=== PATIENT | male | born 1970 | race Caucasian/White ===

== ENCOUNTER 2017-01-01 22:21 | Emergency (ER) | payer OTHER, BC ==
[~2017-01-01] VITALS: Ht 180.3 cm; Wt 95.2 kg
[2017-01-01] MEDS ORDERED: METFORMIN HCL500 MG PO (22:41)
[2017-01-01] MEDS ORDERED: ASPIR-LOW81 MG PO (22:42)
[2017-01-01] MEDS ORDERED: VITAMIN D1000 UNIT PO (22:42)
[2017-01-01] MEDS ORDERED: GLIPIZIDE5 MG PO (22:43)
[2017-01-01] MEDS ORDERED: ANIMAL CHEWS1 EACH PO (22:43)
[2017-01-01] MEDS ORDERED: GLIPIZIDE XL5 MG PO (23:09)
[2017-01-01] MEDS ORDERED: JANUMET XR 50-1 EAC1 PO (23:10)
== END 2017-01-02 01:01 | disposition home or self-care (01) ==
LOC: ED 22:21
DX: E11.65 Type 2 diabetes mellitus with hyperglycemia (principal); Z91.14 Patient's other noncompliance with medication regimen; J45.909 Unspecified asthma, uncomplicated; Z91.09 Other allergy status, other than to drugs and biological substances; Z91.013 Allergy to seafood; Z79.82 Long term (current) use of aspirin; Z79.899 Other long term (current) drug therapy
CPT/HCPCS: 80053; 81001; 82010; 85025; 99283; J7030

== ENCOUNTER 2020-02-11 09:57 | Emergency (ER) | payer BC, OTHER ==
[~2020-02-11] VITALS: Ht 180.3 cm; Wt 95.3 kg
[~2020-02-11 09:57] MED LIST: ANIMAL CHEWS1 EACH PO; ASPIR-LOW81 MG PO; GLIPIZIDE XL5 MG PO; GLIPIZIDE5 MG PO; JANUMET XR 50-1 EAC1 PO; METFORMIN HCL500 MG PO; VITAMIN D1000 UNIT PO
[2020-02-11] MEDS ORDERED: ZITHROMAX250 MG PO (11:39)
--- OUTSIDE RECORDS SUMMARY | 2020-02-11 12:16 | XMS ---
PreManage Notification: [facility] Security Meat Clerk Events No recent Security Events currently on file CRITERIA MET - [facility] - Has Care Guidelines CARE PROVIDERS There are no care providers on record at this time. Juliana has no Care Guidelines for this patient. Care History Medical/Surgical 02/11/2020 [facility] 02/06/20 POSITVE SARS-CoV @ [facility].\T\nbsp; E.D. VISIT COUNT (12 MO.) [address] [facility] TOTAL 1 NOTE: Visits indicate total known visits. ED/[facility] VISIT TRACKING (12 MO.) 02/11/2020 09:[address] [facility] [place] TYPE: Emergency COMPLAINT: - SOB INPATIENT VISIT TRACKING (12 MO.) No inpatient visits to display in this time frame [id number]
== END 2020-02-11 12:12 | disposition home or self-care (01) ==
LOC: ED 09:57
DX: U07.1 COVID-19 (principal); J12.89 Other viral pneumonia; E11.9 Type 2 diabetes mellitus without complications; J45.909 Unspecified asthma, uncomplicated; Z88.8 Allergy status to other drugs, medicaments and biological substances; Z91.013 Allergy to seafood; Z79.899 Other long term (current) drug therapy; Z79.82 Long term (current) use of aspirin
CPT/HCPCS: 71045; 99284-25

== ENCOUNTER 2021-02-23 05:12 | Emergency (ER) | payer OTHER ==
[~2021-02-23] VITALS: Ht 180.3 cm; Wt 106.0 kg
[~2021-02-23 05:12] MED LIST changes: +ZITHROMAX250 MG PO
--- OUTSIDE RECORDS SUMMARY | 2021-02-23 05:16 | XMS ---
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 Juliana has no Care Guidelines for this patient. Care History Medical/Surgical 02/11/2020 [facility] 02/06/20 POSITVE SARS-CoV @ [facility].\T\nbsp; E.D. VISIT COUNT (12 MO.) [address] [facility] TOTAL 1 NOTE: Visits indicate total known visits. ED/[facility] VISIT TRACKING (12 MO.) 02/23/2021 05:14 [facility] [place] TYPE: Emergency COMPLAINT: - FINGER LACERATION INPATIENT VISIT TRACKING (12 MO.) No inpatient visits to display in this time frame [email or web address]
== END 2021-02-23 06:27 | disposition home or self-care (01) ==
LOC: ED 05:12
DX: S61.212A Laceration without foreign body of right middle finger without damage to nail, initial encounter (principal); Z23 Encounter for immunization; W22.8XXA Striking against or struck by other objects, initial encounter; E11.9 Type 2 diabetes mellitus without complications; J45.909 Unspecified asthma, uncomplicated; Z88.8 Allergy status to other drugs, medicaments and biological substances; Z79.899 Other long term (current) drug therapy; Z79.82 Long term (current) use of aspirin; Z91.013 Allergy to seafood
CPT/HCPCS: 12001; 90471; 90715; 99282-25

== ENCOUNTER 2021-02-28 00:48 | Emergency (ER) | payer OTHER ==
[~2021-02-28] VITALS: Ht 180.3 cm; Wt 105.2 kg
--- OUTSIDE RECORDS SUMMARY | 2021-02-28 00:50 | XMS ---
PreManage Notification: [facility] Security Rail Crew Member Events No recent Security Events currently on file CRITERIA MET - [facility] - Has Care Guidelines - [facility] - 2 Visits in 30 Days CARE PROVIDERS [facility] 02/24/2021-[facility] PHONE: [phone] Juliana has no Care Guidelines for this patient. Care History Medical/Surgical 02/24/2021 [facility] - PATIENT IS [facility], \T\middot;\T\nbsp; PLEASE REFER PATIENT TO [facility] FOR NON EMERGENT MEDICAL NEEDS. \T\middot;\T\nbsp; [facility] CAN SEE PATIENTS SAME DAY FOR APTS IF PATIENT CALLS FIRST THING IN THE MORNING. 02/11/2020 [facility] 02/06/20 POSITVE SARS-CoV @ [facility].\T\nbsp; E.D. VISIT COUNT (12 MO.) 2 [facility] TOTAL 2 NOTE: Visits indicate total known visits. ED/[facility] VISIT TRACKING (12 MO.) 02/28/2021 00:49 [facility] [place] TYPE: Emergency COMPLAINT: - RT SIDED PAIN, SHORTNESS OF BREATH 02/23/2021 05:14 [facility] [place] TYPE: Emergency COMPLAINT: - FINGER LACERATION DIAGNOSES: - M[facility] (current) use of aspirin - Encounter for immunization - Type 2 diabetes mellitus without complications - Striking against or struck by other objects, initial encounter - Allergy status to other drugs, medicaments and biological substances - Laceration without foreign body of right middle finger without damage to nail, initial encounter - Allergy to seafood - Unspecified asthma, uncomplicated - Other transit operator (current) drug therapy INPATIENT VISIT TRACKING (12 MO.) No inpatient visits to display in this time frame [email or web address]
== END 2021-02-28 02:29 | disposition home or self-care (01) ==
LOC: ED 00:48
DX: S20.214A Contusion of middle front wall of thorax, initial encounter (principal); W22.8XXA Striking against or struck by other objects, initial encounter; E11.9 Type 2 diabetes mellitus without complications; J45.909 Unspecified asthma, uncomplicated; Z91.041 Radiographic dye allergy status; Z91.013 Allergy to seafood; Z79.899 Other long term (current) drug therapy; Z79.82 Long term (current) use of aspirin
CPT/HCPCS: 71046; 74176; 99284-25

== ENCOUNTER 2023-12-04 07:30 | Day surgery (SDC) | payer OTHER ==
[~2023-12-04] VITALS: Ht 180.3 cm; Wt 101.0 kg
[~2023-12-04 07:30] MED LIST changes: +AMOX TR-K CLV1 EAC1 PO; +IBLOOD GLUCOSE TEST STRIP 1 EA TEST VI PRN; +LACTATED RINGER'S 1,000 ML IV SCH; +LIDOCAINE HCL 1% 5 ML SDV INJ ONE; +MIDAZOLAM HCL 5 MG/5 ML VIAL IV PRN; +fentaNYL citrate 100 MCG/2 ML VIAL IV PRN
--- NOTE | 2023-12-04 07:47 | NUR ---
PT NOT AVAILABLE FOR VISIT. PROVIDED PRAYER.
[2023-12-04 07:52] VITALS: BP 130/83
[2023-12-04] MEDS ORDERED: ROSUVASTATIN CA10 MG PO (07:55)
[2023-12-04] MEDS ORDERED: LISINOPRIL40 MG PO (07:55)
[2023-12-04] MEDS ORDERED: JARDIANCE25 MG PO (07:55)
[2023-12-04] MEDS ORDERED: fentaNYL citrate 100 MCG/2 ML VIAL ONE (08:37)
[2023-12-04] MEDS ORDERED: MIDAZOLAM HCL 5 MG/5 ML VIAL ONE (08:37)
--- NOTE | 2023-12-04 09:31 | NUR ---
12/04/23 0931 Ching Barrios 6260-PATIENT ARRIVED TO PACU ON 2L NC RR EVEN. PATIENT REACTIVE TO VERBAL STIMULI OPENING EYES VERY DROWSY. ENCOURAGED TO PASS GAS. DENIES PAIN. DOZES BACK TO SLEEP. ABDOMEN SOFT. IVF INFUSING.
[2023-12-04 10:18] VITALS: BP 115/82
--- NOTE | 2023-12-04 12:07 | OR ---
[facility] [address] [place], [place] [address] Signed DATE OF OPERATION: 12/04/2023 SURGEON: David Redd MD PREOPERATIVE DIAGNOSIS: Screening. POSTOPERATIVE DIAGNOSES: 1. 5 mm polyp at 5 cm in the rectum. 2. 5 mm polyp at 15 cm in the rectum. PROCEDURE: Colonoscopy with hot biopsy. ESTIMATED BLOOD LOSS: None. INDICATIONS: South is a 53-year-old diabetic gentleman, asked to see me for his initial screening colonoscopy. He has no lower GI complaints. There is no family history of colon cancer or polyps. In the office, I gave him a pamphlet on colonoscopy. He understands the nature of the test. There is risk including, but not limited to gas bloating, crampy abdominal pain, bleeding, perforation requiring surgery, and missed diagnosis. We also reviewed the written instructions for a bowel prep line by line. We also reviewed the need for IV conscious sedation. He had expressed understanding and wished to proceed. He understands an adult person has to take him home afterwards. He had expressed understanding and wished to proceed. DESCRIPTION OF PROCEDURE: South was taken into our endoscopy suite and placed in the left lateral decubitus position. He was given 8 mg of Versed and 150 mcg of fentanyl throughout the case. A couple of times, he was a little awake, so we paused and gave him some more medication and then proceeded. A digital rectal exam had been performed. He had good sphincter tone. No external hemorrhoids. No masses. His prostate is enlarged and indurated. The adult colonoscope had been introduced and advanced under direct visualization of the camera. We could easily see the appendiceal orifice and the ileocecal valve. His prep was good. The scope was then slowly withdrawn. We took several pictures throughout for photodocumentation. He had no pathology in the entire colon. The rectum had two small polyps, which we removed with the hot biopsy forceps. Upon retroflexion of the scope, he really does not have any additional pathology above the anal canal. After this, the Electronically Signed By: DAVID REDD MD 12/04/23 1207 PATIENT NAME: SOUTH OSCAR OPERATIVE REPORT DATE OF : 68 REPORT #: [id number] PHYSICIAN: DAVID REDD MD PCP: MADONNA JEAN BAPTISTE MD REPORT IS CONFIDENTIAL AND NOT TO BE RELEASED WITHOUT AUTHORIZATION [facility] [address] [place] [id number] Signed gas was suctioned out and the colonoscope removed. South tolerated the procedure quite well. RECOMMENDATIONS: I will see South back in my office in 7 to 14 days to review his pathology results. David Redd MD ALB/MODL /[id number] cc: David Redd MD [facility] Copies: DAVID REDD MD ~ Electronically Signed By: DAVID REDD MD 12/04/23 1207 PATIENT NAME: SOUTH OSCAR OPERATIVE REPORT DATE OF : 68 REPORT #: [id number] PHYSICIAN: DAVID REDD MD PCP: MADONAN JEAN BAPTISTE MD REPORT IS CONFIDENTIAL AND NOT TO BE RELEASED WITHOUT AUTHORIZATION
--- NOTE | 2023-12-06 14:26 | PATH ---
[facility] [address] [facility] [place], [place] [address] Signed SPECIMEN(S): A RECTAL POLYP, 5 CM SPECIMEN(S): B RECTAL POLYP, 15 CM SPECIMEN SOURCE: A. RECTAL POLYP, 5 CM B. RECTAL POLYP, 15 CM CLINICAL HISTORY: Colon screening/rectal polyps FINAL PATHOLOGIC DIAGNOSIS: A. Rectal polyp 5 cm: - Hyperplastic polyp (one fragment). B. Rectal polyp 15 cm: - Hyperplastic polyp (one fragment). JVR:clv MICROSCOPIC EXAMINATION: Histologic sections of all submitted blocks are examined by light microscopy. These findings, together with the gross examination, support the pathologic diagnosis. GROSS DESCRIPTION: A. The specimen, labeled and designated "[place], rectal polyp, 5 cm," is received in formalin and consists of one kilpatrick soft tissue fragment, 0.2 cm. Entirely submitted in (A1). B. The specimen, labeled and designated "[place], rectal polyp, 15 cm," is received in formalin and consists of one kilpatrick soft tissue fragment, 0.2 cm. Entirely submitted in (B1). VB (under the direct supervision of a pathologist) The Gross Description was prepared using a voice recognition system. The report was reviewed for accuracy; however, sound-alike word errors, addition and/or deletions may occur. If there is any question about this report, please contact Client Services. PERFORMING LABORATORY: Technical component was performed by [facility], [address] [place] [id number] (CLIA# [id number]). Professional interpretation was performed by [facility] - [facility], [address] [place] [id number] (CLIA#: [id number]). PATIENT NAME: SOUTH OSCAR PATHOLOGY DATE OF : 68 REPORT #: [id number] PHYSICIAN: [facility] PCP: MADONNA JEAN BAPTISTE MD REPORT IS CONFIDENTIAL AND NOT TO BE RELEASED WITHOUT AUTHORIZATION [address] [address] Signed Diagnostician: Robert Wilcox MD Pathologist Electronically Signed 12/06/2023 Copies: ~ PATIENT NAME: SOU[facility] OSCAR PATHOLOGY DATE OF : 68 REPORT #: [id number] PHYSICIAN: [facility] PCP: MADONNA JEAN BAPTISTE MD REPORT IS CONFIDENTIAL AND NOT TO BE RELEASED WITHOUT AUTHORIZATION
== END 2023-12-04 10:26 | disposition home or self-care (01) ==
LOC: DS 07:30
PROVIDERS: ATTEND Colon & Rectal Surgery
PROC: 0DBP8ZX Excision of Rectum, Via Natural or Artificial Opening Endoscopic, Diagnostic (ICD-10-PCS; principal; 2023-12-04 09:00)
DX: Z12.11 Encounter for screening for malignant neoplasm of colon (principal); K62.1 Rectal polyp; E11.9 Type 2 diabetes mellitus without complications; I10 Essential (primary) hypertension; K21.9 Gastro-esophageal reflux disease without esophagitis; J45.909 Unspecified asthma, uncomplicated; E66.9 Obesity, unspecified; Z68.31 Body mass index [BMI] 31.0-31.9, adult; Z79.899 Other long term (current) drug therapy; Z91.013 Allergy to seafood; Z91.041 Radiographic dye allergy status
CPT/HCPCS: 99153; G0500; J2250; J3010; J7121

== ENCOUNTER 2024-03-12 15:14 | Emergency (ER) | payer OTHER ==
[~2024-03-12] VITALS: Ht 180.3 cm; Wt 100.4 kg
[~2024-03-12 15:14] MED LIST changes: -IBLOOD GLUCOSE TEST STRIP 1 EA TEST VI PRN; +JARDIANCE25 MG PO; -LACTATED RINGER'S 1,000 ML IV SCH; -LIDOCAINE HCL 1% 5 ML SDV INJ ONE; +LISINOPRIL40 MG PO; -MIDAZOLAM HCL 5 MG/5 ML VIAL IV PRN; +ROSUVASTATIN CA10 MG PO; -fentaNYL citrate 100 MCG/2 ML VIAL IV PRN
[2024-03-12] MEDS ORDERED: KETOROLAC TROMETHAMINE 30 MG/ML VIAL IV ONE (16:00)
[2024-03-12] MEDS ORDERED: ondansetron HCL 4 MG/2 ML VIAL IV ONE (16:00)
[2024-03-12] MEDS ORDERED: SODIUM CHLORIDE 0.9% 1,000 ML IV ONE (16:00)
[2024-03-12 16:09] LABS: BASOPHILS 0.5 % (0-2); EOSINOPHILS 1.7 % (0-6); HEMATOCRIT 44.4 % (35.0-50.0); HEMOGLOBIN 15.4 g/dL (12.0-18.0); LYMPHOCYTES 12.2 % (24-44); MCHC 34.5 g/dl (30-36); MCV 92.7 fl (81-99); MONOCYTES 5.5 % (0-12); NEUTROPHILS 80.1 % (39-80); PLATELET COUNT 211 K/uL (140-440); RDW 12.7 (10.5-15.0)
[2024-03-12 16:15] LABS: BILIRUBIN, URINE POSITIVE (negative); BLOOD/HGB, URINE LARGE (Negative); KETONE, URINE TRACE (Negative); LEUK ESTERASE, URINE NEGATIVE (negative); NITRITE, URINE NEGATIVE (negative); PH, URINE 5.5 (5-7)
[2024-03-12] MEDS ORDERED: INSULIN GL100 UNIT/2 SQ (16:17)
[2024-03-12] MEDS ORDERED: TRULICITY4.5 MG/0.5 SQ (16:17)
[2024-03-12 16:18] LABS: ALBUMIN 3.9 g/dL (3.4-5.0); ALBUMIN/GLOBULIN RATIO 1.34 (1.1-2.4); BILIRUBIN, TOTAL 0.8 ng/dL (0.2-1.0); BUN/CREATININE RATIO 13.08 (6.0-28.6); CALCIUM 9.2 mg/dL (8.5-10.1); CREATININE, SERUM 1.07 mg/dL (0.70-1.30); PROTEIN, TOTAL 6.8 g/dL (6.4-8.2)
[2024-03-12 16:23] LABS: CASTS, URINE NONE SEEN \\lpf; COLLECTION TYPE, URINE CLEAN CATCH; CRYSTALS, URINE CALCIUM OXALATE 2+ (0-1+); EPITHELIAL CELLS, URINE 0 /lpf (0-1+); RED BLOOD CELLS, URINE >50 /hpf (0-5); REFLEX CULTURE, URINE No (No)
[2024-03-12 16:24] LABS: BACTERIA, URINE RARE /hpf (negative)
[2024-03-12] MEDS ORDERED: HYDROCODON-ACE1 EA11 PO (17:05)
[2024-03-12] MEDS ORDERED: FLOMAX0.4 MG PO (17:05)
[2024-03-12 17:13] VITALS: BP 134/80
[2024-03-12] MEDS ORDERED: ONDANSETRON 4 MG HOME.PACK SL ONE (17:15)
[2024-03-12] MEDS ORDERED: TAMSULOSIN HCL 0.4 MG CAP PO ONE (17:15)
[2024-03-12] MEDS ORDERED: HYDROCODONE BIT/ACETAMINOPHEN 5/325 MG 1 TAB HOME.PACK PO ONE (17:15)
== END 2024-03-12 17:35 | disposition home or self-care (01) ==
LOC: ED 15:14
PROVIDERS: Emergency Medicine
DX: N13.2 Hydronephrosis with renal and ureteral calculous obstruction (principal); J45.909 Unspecified asthma, uncomplicated; E11.9 Type 2 diabetes mellitus without complications; Z88.8 Allergy status to other drugs, medicaments and biological substances; Z91.013 Allergy to seafood; Z79.4 Long term (current) use of insulin; Z79.84 Long term (current) use of oral hypoglycemic drugs; Z79.82 Long term (current) use of aspirin; Z79.899 Other long term (current) drug therapy
CPT/HCPCS: 36415; 74176; 80053; 81001; 85025; 96361; 96374; 96375; 99284-25; A9270; J1885; J2405; J7030

== ENCOUNTER 2024-04-14 19:42 | Emergency (ER) | payer OTHER ==
[~2024-04-14] VITALS: Ht 180.3 cm; Wt 99.8 kg
[~2024-04-14 19:42] MED LIST changes: +FLOMAX0.4 MG PO; +HYDROCODON-ACE1 EA11 PO; +INSULIN GL100 UNIT/2 SQ; +TRULICITY4.5 MG/0.5 SQ
[2024-04-14] MEDS ORDERED: TETRACAINE HCL 0.5% 4 ML BTL OD ONE (20:30)
[2024-04-14] MEDS ORDERED: FLUORESCEIN SOD 1 EA STRP OD ONE ×2 (20:30→21:15)
[2024-04-14] MEDS ORDERED: ERYTHROMYCIN 3.5 GM HOME.PACK OP ONE (22:00)
[2024-04-14 22:02] VITALS: BP 149/91
== END 2024-04-14 22:07 | disposition home or self-care (01) ==
LOC: ED 19:42
DX: S05.01XA Injury of conjunctiva and corneal abrasion without foreign body, right eye, initial encounter (principal); X58.XXXA Exposure to other specified factors, initial encounter; E11.9 Type 2 diabetes mellitus without complications; J45.909 Unspecified asthma, uncomplicated; Z88.8 Allergy status to other drugs, medicaments and biological substances; Z91.013 Allergy to seafood; Z79.82 Long term (current) use of aspirin; Z79.84 Long term (current) use of oral hypoglycemic drugs; Z79.899 Other long term (current) drug therapy
CPT/HCPCS: 99283